=== PATIENT | male | born 1995 | race Caucasian/White ===

== ENCOUNTER 2020-04-16 15:51 | Emergency (ER) | payer MEDICAID ==
[~2020-04-16] VITALS: Ht 157.5 cm; Wt 68.2 kg
[2020-04-16] MEDS ORDERED: LORazepam 2 MG/ML VIAL IVP ONE (16:15)
[2020-04-16] MEDS ORDERED: SODIUM CHLORIDE 0.9% 1,000 ML IV ONE ×2 (16:15→18:30)
[2020-04-16 16:16] LABS: BASOPHILS % (AUTO) 0.6 % (0.0-2.0); EOSINOPHILS % (AUTO) 3.5 % (1.0-6.0); HEMATOCRIT 51.7 % (41-53); LYMPHOCYTES % (AUTO) 19.8 % (22.0-44.0); MEAN CORPUSCULAR HGB CONC 32.8 G/dL (31.0-37.0); MEAN CORPUSCULAR VOLUME 85 fL (80-100); MONOCYTES # (AUTO) 0.6 K/uL (0.1-1.0); MONOCYTES % (AUTO) 5.6 % (2.0-9.0); NEUTROPHILS % (AUTO) 70.5 % (40.0-70.0); PLATELET COUNT (AUTO) 228 K/uL (150-450); RED BLOOD CELL COUNT(AUTO) 6.07 MIL/uL (4.50-5.90); RED CELL DISTRIBUTION WIDTH 13.7 % (11.5-14.5)
[2020-04-16 16:24] LABS: ANION GAP 13 mmol/L (8-16); CALCIUM, TOTAL 9.4 mg/dL (8.8-10.5); CARBON DIOXIDE 22 mmol/L (22-29); CHLORIDE 103 mmol/L (98-107); CREATININE 0.93 mg/dL (0.60-1.30); GLOMERULAR FILTR. RATE CALC > 60 mL/min (>60); GLUCOSE,RANDOM 95 mg/dL (70-110); POTASSIUM 3.9 mmol/L (3.5-5.1); SODIUM SERUM 138 mmol/L (136-145); UREA NITROGEN, BLOOD 15 mg/dL (7-18)
[2020-04-16 16:49] LABS: CREATINE KINASE, TOTAL ONLY 130 U/L (39-308)
[2020-04-16 21:17] VITALS: BP 119/81
== END 2020-04-16 21:29 | disposition home or self-care (01) ==
LOC: EMS 15:53
DX: R00.0 Tachycardia, unspecified (principal); R07.9 Chest pain, unspecified; R00.2 Palpitations; F15.10 Other stimulant abuse, uncomplicated; J45.909 Unspecified asthma, uncomplicated; F17.210 Nicotine dependence, cigarettes, uncomplicated
CPT/HCPCS: 36415; 71045; 80048; 82550; 84484; 85025; 93005; 96374; 99285; J2060; J7030

== ENCOUNTER 2020-04-21 06:37 | Emergency (ER) | payer MEDICAID ==
[~2020-04-21] VITALS: Ht 170.2 cm; Wt 93.2 kg
[2020-04-21 09:46] VITALS: BP 129/84
== END 2020-04-21 09:52 | disposition home or self-care (01) ==
LOC: EMS 06:37
DX: R07.2 Precordial pain (principal); F15.10 Other stimulant abuse, uncomplicated; J45.909 Unspecified asthma, uncomplicated; F17.210 Nicotine dependence, cigarettes, uncomplicated
CPT/HCPCS: 93005

== ENCOUNTER 2025-11-10 13:27 | Emergency (ER) | payer MEDICAID, OTHER ==
[~2025-11-10] VITALS: Ht 170.2 cm; Wt 79.5 kg
[2025-11-10 15:06] VITALS: TEMP 98.4
[2025-11-10] MEDS: ACETAMINOPHEN 500 MG TABLET PO ONE (15:43)
[2025-11-10] MEDS: BACITRACIN 0.9 GM PACKET OINTMENT TP ONE (18:10)
[2025-11-10] MEDS: LIDOCAINE 1% 10 ML VIAL ID ONE (18:10)
[2025-11-10 18:44] VITALS: BP 135/87; PULSE 82; RESP 16; O2SAT 98
== END 2025-11-10 19:00 | disposition home or self-care (01) ==
LOC: EMS 13:27
DX: S02.2XXA Fracture of nasal bones, initial encounter for closed fracture (principal); S01.111A Laceration without foreign body of right eyelid and periocular area, initial encounter; S01.511A Laceration without foreign body of lip, initial encounter; J45.909 Unspecified asthma, uncomplicated; F17.210 Nicotine dependence, cigarettes, uncomplicated; F15.90 Other stimulant use, unspecified, uncomplicated; F10.90 Alcohol use, unspecified, uncomplicated; Z98.890 Other specified postprocedural states; Y90.9 Presence of alcohol in blood, level not specified; Y04.0XXA Assault by unarmed brawl or fight, initial encounter; Y93.89 Activity, other specified; Y92.89 Other specified places as the place of occurrence of the external cause; Y99.8 Other external cause status
CPT/HCPCS: 99284; 70450; 70486; 72125; 12011; J3490

== ENCOUNTER 2025-11-11 01:16 | Emergency (ER) | payer OTHER ==
[~2025-11-11] VITALS: Ht 170.2 cm; Wt 79.5 kg
[2025-11-11 01:29] VITALS: TEMP 98.4
[2025-11-11 04:00] VITALS: BP 123/77; PULSE 87; RESP 16; O2SAT 99
== END 2025-11-11 04:38 ==
LOC: EMS 01:18
DX: S01.512A Laceration without foreign body of oral cavity, initial encounter (principal); J45.909 Unspecified asthma, uncomplicated; Y04.0XXA Assault by unarmed brawl or fight, initial encounter; Y93.89 Activity, other specified; Y92.89 Other specified places as the place of occurrence of the external cause; Y99.8 Other external cause status
CPT/HCPCS: 12013; 99283